=== PATIENT | male | born 1935 | race Caucasian/White ===

== ENCOUNTER → 2017-09-26 | Outpatient (CLI) | payer MEDICARE, OTHER ==
[~2017-09-26] MED LIST: ASPI81CH PO; Calcium +D & M1 EACH PO; HYDMOR2 PO; IRON150C PO; LORA1 PO; MAGOXI400 PO; METOPROLOL ER SUCCIN PO; PANT40 PO; PARO20 PO; ROSU5 PO; RXHYDMOR2 PO; TAMS.4ER PO
[2017-09-26 10:41] LABS: BASOPHILS ABSOLUTE AUTO 0.03 K/mm3 (0.00-0.23); BASOPHILS PERCENT AUTO 1 % (0-2); EOSINOPHILS ABSOLUTE AUTO 0.05 K/mm3 (0.00-0.68); EOSINOPHILS PERCENT AUTO 1 % (0-6); Hematocrit 41.4 % (37.0-53.0); Hemoglobin 14.2 g/dL (13.5-17.5); IMMATURE GRAN ABSOLUTE AUTO 0.01 K/mm3 (0.00-0.10); IMMATURE GRAN PERCENT AUTO 0 % (0-1); LYMPHOCYTES ABSOLUTE AUTO 1.32 K/mm3 (0.84-5.20); LYMPHOCYTES PERCENT AUTO 33 % (21-46); MONOCYTES ABSOLUTE AUTO 0.74 K/mm3 (0.16-1.47); MONOCYTES PERCENT AUTO 19 % (4-13); Mean Corpuscular HGB Conc 34.3 g/dL (31.5-36.5); Mean Corpuscular Volume 93 fL (80-100); Mean Platelet Volume 11.1 fL (9.1-12.4); NEUTROPHILS ABSOLUTE AUTO 1.85 K/mm3 (1.96-9.15); NEUTROPHILS PERCENT AUTO 46 % (41-73); Platelet Count 156 K/mm3 (150-400); RDW Standard Deviation 51.6 fL (35.1-46.3); Red Blood Cell Count 4.44 M/mm3 (4.30-5.90)
[2017-09-26 10:50] LABS: Albumin, Blood 3.9 g/dL (3.4-5.0); Albumin/Globulin Ratio 0.9 (0.8-1.8); Bilirubin, Total 0.6 mg/dL (0.1-1.0); Bun/Creatinine Ratio 18.5 (12.0-20.0); Calcium, Blood 9.2 mg/dL (8.5-10.1); Creatinine, Blood 1.19 mg/dL (0.60-1.20); Globulin, Blood 4.2 g/dL (2.2-4.0); Potassium, Blood 4.5 mmol/L (3.5-5.5); Total Protein, Blood 8.1 g/dL (6.4-8.2)
== END ==
LOC: LAB EV 10:32 → LAB SHORT 10:32
PROVIDERS: Physician Assistant
DX: R10.33 Periumbilical pain (principal)
CPT/HCPCS: 80053; 83690; 85025

== ENCOUNTER 2018-10-07 10:29 | Day surgery (SDC) | payer MEDICARE, OTHER ==
[~2018-10-07] VITALS: Ht 175.3 cm; Wt 91.0 kg
[~2018-10-07 10:29] MED LIST changes: +DILT120 PO; +ELIQUIS5 MG; +ELIQUIS5 MG PO
== END 2018-10-07 15:06 | disposition home or self-care (01) ==
LOC: ORSCSDS 10:29
PROVIDERS: Internal Medicine Gastroenterology
PROC: 0DBK8ZX Excision of Ascending Colon, Via Natural or Artificial Opening Endoscopic, Diagnostic (ICD-10-PCS; principal; 2018-10-07 12:00)
PROC: 0DB58ZX Excision of Esophagus, Via Natural or Artificial Opening Endoscopic, Diagnostic (ICD-10-PCS; principal; 2018-10-07 12:00)
DX: R19.5 Other fecal abnormalities (principal); D64.9 Anemia, unspecified; D12.2 Benign neoplasm of ascending colon; K22.10 Ulcer of esophagus without bleeding; K25.4 Chronic or unspecified gastric ulcer with hemorrhage; K57.30 Diverticulosis of large intestine without perforation or abscess without bleeding; K64.8 Other hemorrhoids; I10 Essential (primary) hypertension; I48.91 Unspecified atrial fibrillation; Z79.01 Long term (current) use of anticoagulants; J44.9 Chronic obstructive pulmonary disease, unspecified; K21.9 Gastro-esophageal reflux disease without esophagitis; G47.33 Obstructive sleep apnea (adult) (pediatric); Z99.81 Dependence on supplemental oxygen; Z79.899 Other long term (current) drug therapy; Z79.82 Long term (current) use of aspirin
CPT/HCPCS: 88305; J2704; J7120

== ENCOUNTER → 2019-03-04 | Outpatient (CLI) | payer MEDICARE, OTHER | END | disposition home or self-care (01) | LOC: LAB SHORT 08:41 → PLD 08:41 | DX: D22.5 Melanocytic nevi of trunk (principal) | CPT/HCPCS: 88305 ==

== ENCOUNTER 2021-10-10 20:36 | Emergency (ER) | payer MEDICARE, OTHER ==
[~2021-10-10] VITALS: Ht 185.4 cm; Wt 90.7 kg
[2021-10-10 21:54] LABS: SARS-Cov-2 (COVID-19) PCR, MMC NEGATIVE (NEGATIVE)
== END 2021-10-10 21:00 | disposition home or self-care (01) ==
LOC: ER 20:36
PROVIDERS: Physician Assistant
DX: Z20.822 Contact with and (suspected) exposure to COVID-19 (principal); J44.9 Chronic obstructive pulmonary disease, unspecified; Z88.0 Allergy status to penicillin; Z88.8 Allergy status to other drugs, medicaments and biological substances; Z79.01 Long term (current) use of anticoagulants; Z79.899 Other long term (current) drug therapy; Z87.891 Personal history of nicotine dependence
CPT/HCPCS: 99282; U0004

== ENCOUNTER 2021-10-11 06:41 | Day surgery (SDC) | payer MEDICARE, OTHER ==
[~2021-10-11] VITALS: Ht 175.3 cm; Wt 82.2 kg
== END 2021-10-11 08:55 | disposition home or self-care (01) ==
LOC: ORSCSDS 06:41
PROVIDERS: Ophthalmology
PROC: 08RK3JZ Replacement of Left Lens with Synthetic Substitute, Percutaneous Approach (ICD-10-PCS; principal; 2021-10-11 08:00)
DX: H25.12 Age-related nuclear cataract, left eye (principal); H21.81 Floppy iris syndrome; F32.A Depression, unspecified; I48.91 Unspecified atrial fibrillation; I10 Essential (primary) hypertension; Z79.01 Long term (current) use of anticoagulants; Z79.899 Other long term (current) drug therapy; Z87.891 Personal history of nicotine dependence
CPT/HCPCS: J2001; J2250; J3010; J3301; J7040; V2632

== ENCOUNTER 2022-11-12 19:52 | Inpatient (IN) | payer MEDICARE, OTHER ==
[~2022-11-12] VITALS: Ht 175.3 cm; Wt 78.2 kg
[2022-11-12 20:48] LABS: Hematocrit 32.6 % (37.0-53.0); Hemoglobin 10.5 g/dL (13.5-17.5); Mean Corpuscular HGB 29.4 pg (26.0-34.0); Mean Corpuscular HGB Conc 32.2 g/dL (31.5-36.5); Mean Corpuscular Volume 91 fL (80-100); Platelet Count 65 K/mm3 (150-400); RDW Coefficient Variation 19.3 % (11.7-14.2); RDW Standard Deviation 65.1 fL (35.1-46.3); Red Blood Cell Count 3.57 M/mm3 (4.30-5.90); White Blood Cell Count 1.05 K/mm3 (4.00-11.30)
[2022-11-12 20:57] LABS: Albumin, Blood 3.4 g/dL (3.4-5.0); Albumin/Globulin Ratio 0.9 (0.8-1.8); Bilirubin, Total 0.6 mg/dL (0.1-1.0); Bun/Creatinine Ratio 24.3 (12.0-20.0); Calcium, Blood 8.6 mg/dL (8.5-10.1); Creatinine, Blood 0.99 mg/dL (0.60-1.20); Globulin, Blood 3.6 g/dL (2.2-4.0); Potassium, Blood 4.4 mmol/L (3.5-5.5)
[2022-11-12 21:53] LABS: BASOPHILS ABSOLUTE MAN 0.02 K/mm3 (0.00-0.23); BASOPHILS PERCENT MAN 2 % (0-2); EOSINOPHILS PERCENT MAN 0 % (0-6); LYMPHOCYTES % ATYPICAL MANUAL 2 % (0-0); LYMPHOCYTES ABSOLUTE MAN 0.56 K/mm3 (0.84-5.20); LYMPHOCYTES PERCENT MAN 52 % (21-46); MONOCYTES ABSOLUTE MAN 0.02 K/mm3 (0.16-1.47); MONOCYTES PERCENT MAN 2 % (4-13); NEUTROPHILS ABSOLUTE MAN 0.44 K/mm3 (1.96-9.15); SEG NEUTROPHILS PERCENT MAN 42 % (41-73); TOTAL CELLS COUNTED 50
[2022-11-13] VITALS (9 sets, daily range): BP systolic 101–153; BP diastolic 63–91
[2022-11-13 00:31] LABS: International Normalized Ratio 1.06; Prothrombin Time Results 11.1 Sec (9.7-11.5)
--- NOTE | 2022-11-13 01:00 | NUR ---
ADMISSION REPORT RECEIVED FROM ER NURSE. PATIENT BROUGHT TO PCU 10. PATIENT ABLE TO SLIDE SELF OVER TO PCU BED WITH MINIMAL ASSIST. ALERT, TALKING IN FULL SENTENCES, ORIENTED x4 BUT VERY [place]. PERRLA, NO VISION CHANGES NOTED, EQUAL FARM ADVISOR BILATERALLY. PER PAINTER INTERIOR FINISH, SCALP LAC HAD TO BE RESUTURED MULTIPLE TIMES WHILE IN ER BUT CONTINUES TO OOZE BLOOD. GAUZE PATTED ON SUTURES, COVERED WITH NONADHERENT DRESSING FOR ABSORPTION. PATIENT ORIENTED TO ROOM AND CALL LIGHT SYSTEM. PATIENT REQUESTED SUDOKU, PROVIDED WITH PRINTOUTS AND WRITING UTENSIL. HOB ELEVATED, WILL NOT LOWER LESS THAN 30 DEGREES AT THIS TIME. BED ALARM ON FOR SAFETY, BED IN LOW POSITION. EDUCATED PATIENT ON INCREASED IGNITION RISK WHILE O2 IS IN USE. PATIENT VERBALIZED UNDERSTANDING AND STATED "I QUIT SMOKING OVER 20 YEARS AGO". NO SIGNS OF INCREASED IGNITION RISK AT THIS TIME. CAUTION SIGN HANGING ON DOOR.
[2022-11-13 04:38] LABS: Source, Urine Clean Catch
[2022-11-13 04:49] LABS: Bilirubin, Urine Neg (Neg); Blood, Urine Neg (Neg); Glucose Qualitative, Urine Neg (Neg); Ketones, Urine Neg (Neg); Leukocyte Esterase, Urine Neg (Neg); Nitrite, Urine Neg (Neg); Protein, Urine 2+ (Neg); Urobilinogen, Urine NORM (Normal)
[2022-11-13 05:07] LABS: Appearance, Urine Clear (Clear); Color, Urine Yellow (P-Yellow)
[2022-11-13 05:09] LABS: Bacteria Rare /hpf; Red Blood Cells, Urine 0-2 /hpf (0-2); Squamous Epithelial Cells Rare /hpf (Few); White Blood Cells, Urine 0-2 /hpf (0-5)
[2022-11-13 05:11] LABS: Hyaline Casts 0-2 /lpf (0-2)
[2022-11-13 05:32] LABS: BASOPHILS ABSOLUTE AUTO 0.03 K/mm3 (0.00-0.23); BASOPHILS PERCENT AUTO 2 % (0-2); EOSINOPHILS ABSOLUTE AUTO 0.01 K/mm3 (0.00-0.68); EOSINOPHILS PERCENT AUTO 1 % (0-6); Hematocrit 27.9 % (37.0-53.0); Hemoglobin 9.3 g/dL (13.5-17.5); IMMATURE GRAN ABSOLUTE AUTO 0.05 K/mm3 (0.00-0.10); IMMATURE GRAN PERCENT AUTO 4 % (0-1); LYMPHOCYTES ABSOLUTE AUTO 0.58 K/mm3 (0.84-5.20); LYMPHOCYTES PERCENT AUTO 40 % (21-46); MONOCYTES ABSOLUTE AUTO 0.16 K/mm3 (0.16-1.47); MONOCYTES PERCENT AUTO 11 % (4-13); Mean Corpuscular HGB 30.4 pg (26.0-34.0); Mean Corpuscular HGB Conc 33.3 g/dL (31.5-36.5); Mean Corpuscular Volume 91 fL (80-100); NEUTROPHILS ABSOLUTE AUTO 0.61 K/mm3 (1.96-9.15); NEUTROPHILS PERCENT AUTO 42 % (41-73); Platelet Count 59 K/mm3 (150-400); RDW Coefficient Variation 19.1 % (11.7-14.2); RDW Standard Deviation 64.6 fL (35.1-46.3); Red Blood Cell Count 3.06 M/mm3 (4.30-5.90); White Blood Cell Count 1.44 K/mm3 (4.00-11.30)
--- NOTE | 2022-11-13 05:45 | NUR ---
UPDATE 0330: PATIENT ATTEMPTING TO USE URINAL, UNABLE. PCT BLADDER SCANNED PATIENT, 500mls IN BLADDER. STRAIGHT CATH PER PROTOCOL. Hx BPH, PATIENT PAINFUL DURING PROCEDURE, APPROXIMATELY 350 DRAINED FROM BLADDER, PATIENT REPORTING SOME RELIEF. 0415: ABD PAD TO SCALP LAC BLEEDING THROUGH. GAUZE, STERILE SALINE USED TO ATTEMPT TO CLEAN OOZING BLOOD. 2 PACKS OF 4x4s USED TO ATTEMPT TO STOP BLEEDING. CALL PLACED TO DR. AYALA WITH UPDATE. ICU FLORAL DEPARTMENT SPECIALIST, PCU FLORAL DEPARTMENT SPECIALIST AND THIS RN AT BEDSIDE ASSESSING IF SUTURES REMAIN IN PLACE OR IF EXTRA SUTURES ARE NEEDED. ICU FLORAL DEPARTMENT SPECIALIST RECEIVED ORDER FOR THROMBIN TO ASSIST WITH CLOTTING. 0500: THIS RN AND ICU FLORAL DEPARTMENT SPECIALIST TO CT. 0540: THROMBIN RECIEVED AND PLACED TO SUTURE LINE. DRY FLOW PLACED UNDER PATIENT'S HEAD TO CONTINUE TO MONITOR AMOUNT OF BLEEDING AFTER THROMBIN IN PLACE.
[2022-11-13 05:49] LABS: Albumin, Blood 3.3 g/dL (3.4-5.0); Bilirubin, Total 0.6 mg/dL (0.1-1.0); Bun/Creatinine Ratio 31.1 (12.0-20.0); Calcium, Blood 8.4 mg/dL (8.5-10.1); Creatinine, Blood 0.9 mg/dL (0.60-1.20); Globulin, Blood 3.3 g/dL (2.2-4.0); Potassium, Blood 4.3 mmol/L (3.5-5.5); Total Protein, Blood 6.6 g/dL (6.4-8.2)
--- NOTE | 2022-11-13 06:25 | NUR ---
UPDATE/SHIFT SUMMARY 0600: HOSPITALIST AT BEDSIDE. SCHOOL LEADER RECIEVED ORDER FOR LIDO/EPI IN CASE HOPSITALIST NEEDED TO ADD MORE SUTURES. SUTURE SUPPLIES IN ROOM. NO NEED FOR SUTURES AT THIS TIME, WILL CONTINUE TO MONITOR BLEEDING. PATIENT REMAINS ALERT AND ORIENTED, NO CHANGES IN NEURO STATUS SINCE ADMISSION. BP STABLE, PATIENT ON 2L NC WITH O2 SAT LOW TO MID 90s, TELE READING AFIB 90s. STRAIGHT CATH x1 THIS SHIFT. FLUIDS INFUSING PER EMAR. SEE PREVIOUS NOTE FOR FURTHER UPDATES. BED ALARM ON FOR SAFETY. NO OTHER SIGNIFICANT CHANGES, WILL REPORT TO DAY SHIFT RN.
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
[2022-11-13] MEDS ORDERED: DILT60 PO (08:34)
[2022-11-13] MEDS ORDERED: ROSU5 PO (08:35)
[2022-11-13] MEDS ORDERED: FLOMAX0.4 MG PO (08:36)
--- NOTE | 2022-11-13 11:27 | NUR ---
Patient's daughter is at bedside and Dr Claudio has been into assess. Cleaned wound site and have dressed several timed. Just placed lupillo dressing over site and is doing well, changed linen. He has been on RA for several hours and sats >90%. He continues to have a hard time getting words, but is still able to hold conversation. VSS, see EMR. Patient needs constant re-direction when doing care, very fidgety. No real changes in neuros other than thought process since he is talking more with daughter.
--- NOTE | 2022-11-13 14:08 | NUR ---
Reapplied lupillo dressing to head as it was leaking around and dressing currently satuated new dressing and call Dr Claudio and let her know and asked how long to let bleed and will wait til tomoorw if still bleedind assess again. Neuros unchanged with him talking with daughter in room . He did get up once and staff assisted to use urinal and he went back to bed. Poor short term memory and needs redirection with tasks. Bed alrm and re-education flying squad salesperson system to him and daughter. VSS. He denies any pain or ciurrent needs.
--- NOTE | 2022-11-13 14:26 | NUR ---
TRANSFER OF CARE: THIS RN RECEIVED REPORT FROM CAROLINE VINSON AT 1400.
--- NOTE | 2022-11-13 17:04 | NUR ---
SHIFT SUMMARY: ALERT AND ORIENTED TO PERSON, PLACE, AND YEAR. PT WITH SHORT TERM MEMORY & WORD SALAD, NEEDS FREQUENT REDIRECTION. Q2 NEURO CHECKS ORDERED. BED ALARM IN PLACE FOR SAFETY. BP AND HR STABLE, SATS >95% ON ROOM AIR. RESPIRATIONS EVEN AND UNLABORED. PT WITH 10CM LACERATION TO HEAD POST FALL, SITE OOZING BLOOD, MD AWARE, TRACE DRESSING IN PLACE. PT ONE PERSON ASSIST WITH WALKER AND GAITBELT, ABLE TO USE URINAL AT BEDSIDE. DAUGHTER AT BEDSIDE THROUGHOUT THE DAY, UPDATED ON PT CARE, WILL RETURN IN AM. BED IN LOW, ALARM ON, CALL LIGHT IN REACH, WILL REPORT TO ONCOMING RN.
[2022-11-14] VITALS (7 sets, daily range): BP systolic 98–197; BP diastolic 56–88
[2022-11-14 05:28] LABS: Hematocrit 23.8 % (37.0-53.0); Hemoglobin 7.8 g/dL (13.5-17.5); Mean Corpuscular HGB 30.4 pg (26.0-34.0); Mean Corpuscular HGB Conc 32.8 g/dL (31.5-36.5); Mean Corpuscular Volume 93 fL (80-100); Platelet Count 51 K/mm3 (150-400); RDW Coefficient Variation 19.9 % (11.7-14.2); Red Blood Cell Count 2.57 M/mm3 (4.30-5.90); White Blood Cell Count 3.36 K/mm3 (4.00-11.30)
[2022-11-14 05:41] LABS: International Normalized Ratio 1.05
[2022-11-14 05:56] LABS: Albumin, Blood 3.4 g/dL (3.4-5.0); Albumin/Globulin Ratio 1.2 (0.8-1.8); Bilirubin, Total 0.4 mg/dL (0.1-1.0); Bun/Creatinine Ratio 36.9 (12.0-20.0); Calcium, Blood 8.5 mg/dL (8.5-10.1); Creatinine, Blood 1.03 mg/dL (0.60-1.20); Globulin, Blood 2.8 g/dL (2.2-4.0); Potassium, Blood 4.6 mmol/L (3.5-5.5); Total Protein, Blood 6.2 g/dL (6.4-8.2)
[2022-11-14 06:21] LABS: BAND PERCENT MAN 1 % (0-8); BASOPHILS PERCENT MAN 0 % (0-2); EOSINOPHILS PERCENT MAN 0 % (0-6); LYMPHOCYTES PERCENT MAN 15 % (21-46); MONOCYTES ABSOLUTE MAN 1.61 K/mm3 (0.16-1.47); MONOCYTES PERCENT MAN 48 % (4-13); NEUTROPHILS ABSOLUTE MAN 1.24 K/mm3 (1.96-9.15); SEG NEUTROPHILS PERCENT MAN 36 % (41-73); TOTAL CELLS COUNTED 100
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
[2022-11-14 12:07] LABS: BASOPHILS ABSOLUTE AUTO 0.01 K/mm3 (0.00-0.23); BASOPHILS PERCENT AUTO 0 % (0-2); EOSINOPHILS PERCENT AUTO 0 % (0-6); Hematocrit 23.9 % (37.0-53.0); Hemoglobin 7.8 g/dL (13.5-17.5); IMMATURE GRAN ABSOLUTE AUTO 0.09 K/mm3 (0.00-0.10); IMMATURE GRAN PERCENT AUTO 3 % (0-1); LYMPHOCYTES ABSOLUTE AUTO 0.89 K/mm3 (0.84-5.20); LYMPHOCYTES PERCENT AUTO 33 % (21-46); MONOCYTES ABSOLUTE AUTO 1.04 K/mm3 (0.16-1.47); MONOCYTES PERCENT AUTO 38 % (4-13); Mean Corpuscular HGB 30.4 pg (26.0-34.0); Mean Corpuscular HGB Conc 32.6 g/dL (31.5-36.5); Mean Corpuscular Volume 93 fL (80-100); NEUTROPHILS PERCENT AUTO 26 % (41-73); RDW Standard Deviation 66.9 fL (35.1-46.3); Red Blood Cell Count 2.57 M/mm3 (4.30-5.90); White Blood Cell Count 2.73 K/mm3 (4.00-11.30)
[2022-11-14 12:10] LABS: Platelet Count 50 K/mm3 (150-400)
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
--- NOTE | 2022-11-14 17:06 | NUR ---
TRANSFER OF CARE: REPORT RECEIVED FROM FEDERICO VELAZQUEZ. PT HAS FAMILIES AT THE BEDSIDE, PT RESTING IN BED WITH BANDAGE IN HEAD ALMOST OFF, DRESSING WAS REPLACED, NEURO CHECK DONE PT ALERT AND ORIENTED X4 WITH FAMILY AT THE BEDSIDE, WNL. COOPERATIVE WITH CARES. PT HAS A SITTER AND AVASYS MONITOR AT THE BEDSIDE FOR EPISODES OF CONFUSION. VITALS HAS BEEN STABLE, PT ABLE TO MAKE NEEDS KNOWN, CALLS WHEN NEEDED TO GO TO THE BATH ROOM, SBA FOR TRANSFERS. NO OTHER ISSUES AT THIS TIME, CALL LIGHTS IN REACH WILL CONTINUE TO MONITOR
[2022-11-14] MEDS ORDERED: Alphagan P5 ML BOTHEYES (18:29)
[2022-11-14] MEDS ORDERED: LATA.005SO BOTHEYES (18:29)
[2022-11-14] MEDS ORDERED: DORZOLAMIDE-TIM10 ML BOTHEYES (20:48)
[2022-11-15 03:48] VITALS: BP 108/84
[2022-11-15 03:54] LABS: Hematocrit 23.2 % (37.0-53.0); Hemoglobin 7.4 g/dL (13.5-17.5); Mean Corpuscular HGB 30.1 pg (26.0-34.0); Mean Corpuscular HGB Conc 31.9 g/dL (31.5-36.5); Mean Corpuscular Volume 94 fL (80-100); Platelet Count 51 K/mm3 (150-400); RDW Coefficient Variation 19.8 % (11.7-14.2); RDW Standard Deviation 68.3 fL (35.1-46.3); Red Blood Cell Count 2.46 M/mm3 (4.30-5.90); White Blood Cell Count 3.03 K/mm3 (4.00-11.30)
--- NOTE | 2022-11-15 04:58 | NUR ---
SHIFT SUMMARY THIS RN ASSUMED CARE OF PATIENT AT 1900. NO ACUTE NEURO CHANGES DURING THIS SHIFT. SEE ASSESSMENT. PT OCCASIONALLY HAS CALLED APPROPRIATELY, STILL GETS UP TO USE BATHROOM WITHOUT CALLING AFTER WAKING UP. HOWEVER, COMPARED TO PREVIOUS NOC SHIFT, PT IS REDIRECTABLE AND CALM WHEN HE BECOMES FORGETFUL ABOUT SITUATION/PLACE WHEN WAKING UP. VITALS STABLE. AFIB NOTED WITH HR 60-90'S. DRESSING ON HEAD WITH MODERATE AMOUNT OF BLOOD THAT HAS ACCUMULATED OVER THE SHIFT. PT HAS PULLED LOOSE DRESSING OFF OF HEAD MULTIPLE TIMES DURING THIS SHIFT WHEN MOVING IN BED. BED IN LOWEST POSITION. BED ALARM ON. [address] CAMERA IN ROOM[address] DAUGHTER SLEEPING IN ROOM DURING THIS SHIFT. CALL LIGHT WITHIN REACH. THIS RN WILL CONTINUE TO MONITOR UNTIL SHIFT CHANGE AT 0700.
[2022-11-15 06:00] LABS: Albumin, Blood 3.4 g/dL (3.4-5.0); Albumin/Globulin Ratio 1.2 (0.8-1.8); Bilirubin, Total 0.5 mg/dL (0.1-1.0); Bun/Creatinine Ratio 27.9 (12.0-20.0); Calcium, Blood 8.3 mg/dL (8.5-10.1); Creatinine, Blood 1.11 mg/dL (0.60-1.20); Globulin, Blood 2.8 g/dL (2.2-4.0); Potassium, Blood 4.2 mmol/L (3.5-5.5); Total Protein, Blood 6.2 g/dL (6.4-8.2)
[2022-11-15 06:20] LABS: BASOPHILS PERCENT MAN 0 % (0-2); EOSINOPHILS PERCENT MAN 0 % (0-6); LYMPHOCYTES ABSOLUTE MAN 1.57 K/mm3 (0.84-5.20); LYMPHOCYTES PERCENT MAN 52 % (21-46); MONOCYTES ABSOLUTE MAN 0.87 K/mm3 (0.16-1.47); MONOCYTES PERCENT MAN 29 % (4-13); NEUTROPHILS ABSOLUTE MAN 0.57 K/mm3 (1.96-9.15); SEG NEUTROPHILS PERCENT MAN 19 % (41-73); TOTAL CELLS COUNTED 100
[2022-11-15 07:13] VITALS: BP 125/76
[2022-11-15 09:34] VITALS: BP 98/64
[2022-11-15 11:15] VITALS: BP 105/60
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
[2022-11-15 14:33] VITALS: BP 101/66
== END 2022-11-15 15:00 | disposition home or self-care (01) | DRG 83 ==
LOC: ER 19:52 → PCU 19:53
PROVIDERS: Family Medicine; Student in an Organized Health Care Education/Training Program; ADMIT Internal Medicine
PROC: 0HQ0XZZ Repair Scalp Skin, External Approach (ICD-10-PCS; principal; 2022-11-12)
PROC: 30283B1 Transfusion of Nonautologous 4-Factor Prothrombin Complex Concentrate into Vein, Percutaneous Approach (ICD-10-PCS; 2022-11-12)
DX: S06.6XAA Traumatic subarachnoid hemorrhage with loss of consciousness status unknown, initial encounter (principal); C92.10 Chronic myeloid leukemia, BCR/ABL-positive, not having achieved remission; D61.818 Other pancytopenia; S06.5XAA Traumatic subdural hemorrhage with loss of consciousness status unknown, initial encounter; S01.01XA Laceration without foreign body of scalp, initial encounter; N40.0 Benign prostatic hyperplasia without lower urinary tract symptoms; W18.30XA Fall on same level, unspecified, initial encounter; I10 Essential (primary) hypertension; F07.81 Postconcussional syndrome; I48.91 Unspecified atrial fibrillation; J44.9 Chronic obstructive pulmonary disease, unspecified; M19.90 Unspecified osteoarthritis, unspecified site; G56.03 Carpal tunnel syndrome, bilateral upper limbs; D69.6 Thrombocytopenia, unspecified; H26.9 Unspecified cataract; Z79.01 Long term (current) use of anticoagulants; Z79.899 Other long term (current) drug therapy; Z87.891 Personal history of nicotine dependence; Z98.890 Other specified postprocedural states; Z88.0 Allergy status to penicillin; Z88.8 Allergy status to other drugs, medicaments and biological substances
CPT/HCPCS: 12004; 36415; 51701; 70450; 80053; 81001; 83880; 85025; 85610; 85730; 90471; 90714; 94762; 96361-59; 96374-59; 96375; 96375-59; 96376; 97112; 97116; 97161; 97166; 97535; 99285-25; A9270; G0378; J0690; J2405; J7030; J7168